=== PATIENT | female | born 1980 | race Caucasian/White ===

== ENCOUNTER 2018-12-25 23:10 | Emergency (ER) | payer OTHER ==
--- NOTE | 2018-12-26 00:37 | ER Document Report ---
ED General - General Chief Complaint: Pain All Over Stated Complaint: BODY ACHES Time Seen by Provider: 12/26/18 00:18 Primary Care Provider: MIRELA LOPEZ PA-C [Primary Care Provider] - Follow up as needed Notes: Patient is a 38-year-old female otherwise healthy presents to the emergency department for a subjective fever and headache this evening. Patient also complaining of pressure in her left ear. States she has had a generalized cough and congestion for the last 2 weeks. States she noticed she had a subjective fever this evening which is why she presents to the emergency room. States she did take 800 mg of Motrin prior to arrival to the ER. States she no longer feels as though she has a fever and she no longer has a headache. Patient's denying any nausea, vomiting, diarrhea, dysuria, rash, abdominal pain, chest pain. States typically her cough "keeps me up at night." Patient has no medical problems, takes no daily medications, has no allergies, last menstrual cycle was last week. Past Medical History - General Information source: Patient - Social History Smoking Status: Unknown if Ever Smoked Family History: Reviewed & Not Pertinent Review of Systems - Review of Systems Constitutional: Fever EENT: See HPI Cardiovascular: No symptoms reported Respiratory: See HPI Gastrointestinal: No symptoms reported Genitourinary: No symptoms reported Female Genitourinary: No symptoms reported Musculoskeletal: No symptoms reported Skin: No symptoms reported Hematologic/Lymphatic: No symptoms reported Neurological/Psychological: See HPI Physical Exam - Vital signs Vitals: Temp Pulse Resp BP Pulse Ox 99.1 F 104 H 16 127/70 H 97 12/25/18 23:21 12/25/18 23:21 12/25/18 23:21 12/25/18 23:21 12/25/18 23:21 - Notes Notes: GENERAL: Alert, interacts well. No acute distress. HEAD: Normocephalic, atraumatic. EYES: Pupils equal, round, and reactive to light. Extraocular movements intact. ENT: Oral mucosa moist, tongue midline. Nares patent, swollen turbinates noted bilaterally, TM's intact, nonerythematous, nonbulging bilaterally. Pharynx minorly erythematous, no palatal petechiae or exudate noted. NECK: Full range of motion. Supple. Trachea midline. No lymphadenopathy appreciated LUNGS: Clear to auscultation bilaterally, no wheezes, rales, or rhonchi. No respiratory distress. HEART: Regular rate and rhythm. No murmur ABDOMEN: Soft, non-tender. Non-distended. Bowel sounds present in all 4 quadrants. EXTREMITIES: Moves all 4 extremities spontaneously. No edema, normal radial and dorsalis pedis pulses bilaterally. No cyanosis. BACK: no cervical, thoracic, lumbar midline tenderness. No saddle anesthesia, normal distal neurovascular exam. NEUROLOGICAL: Alert and oriented x3. Normal speech. cranial nerves II through XII grossly intact PSYCH: Normal affect, normal mood. SKIN: Warm, dry, normal turgor. No rashes or lesions noted. Course - Re-evaluation Re-evalutation: 12/26/18 02:27 Chest X-Ray 12/26/18 00:31 IMPRESSION: 1. No acute pulmonary process identified. Patient's chest x-ray was negative for pneumonia, pneumothorax, rib fracture. Patient's denying any recent prolonged exposures outside. She is denying any tick bites, walks in the [place] or staying outside to garden recently. Patient is not concerned for tick bite. Discussed likely viral diagnosis with patient at bedside. Patient was hemodynamically stable, non-tachycardic, afebrile. Discussed close follow-up with her primary care provider in the next 12 to 24 hours. Patient stable for discharge. - Vital Signs Vital signs: Temp Pulse Resp BP Pulse Ox 99.1 F 104 H 16 127/70 H 97 12/25/18 23:21 12/25/18 23:21 12/25/18 23:21 12/25/18 23:21 12/25/18 23:21 Discharge - Discharge Clinical Impression: Upper respiratory infection Qualifiers: URI type: unspecified viral URI Qualified Code(s): J06.9 - Acute upper respiratory infection, unspecified Condition: Stable Disposition: HOME, SELF-CARE Instructions: Viral Syndrome ([facility]), Upper Respiratory Illness ([facility]) Additional Instructions: As we discussed you have been seen and treated in the emergency department for an upper respiratory infection. These are typically caused by viruses and do not respond to antibiotics. Please get plenty of rest, drink plenty of fluids. Please take [id number] cold medication as well as the medications I am prescribing. Please follow-up with your primary care provider in the next 12 to 24 hours. Return to the emergency room for any concerns. Prescriptions: Benzonatate [Tessalon Perles 100 mg Capsule] 100 mg PO Q8HP PRN #40 capsule PRN Reason: Fluticasone Propionate [Flonase Nasal [place] 50 Mcg/[place] 16 gm] 1 spray NASL Q12 #1 inhaler Forms: Return to Work Referrals: MIRELA LOPEZ PA-C [Primary Care Provider] - Follow up as needed
--- NOTE | 2018-12-26 01:43 | RADIOLOGY REPORT (SQ) ---
EXAM DESCRIPTION: XR CHEST 2 VIEWS COMPLETED DATE/TME: 12/26/2018 00:31 CLINICAL HISTORY: SOB COMPARISON: None. FINDINGS: Frontal and lateral views of the chest. Cardiomediastinal silhouette: Normal size and contour. Lungs: No consolidation, pneumothorax, or pleural effusion. Bones: No acute osseous abnormality. Upper abdomen: No abnormality identified. IMPRESSION: 1. No acute pulmonary process identified.
[2018-12-26 02:46] VITALS: BP 113/66
== END 2018-12-26 02:45 | disposition home or self-care (01) ==
LOC: ER 23:10
DX: J06.9 Acute upper respiratory infection, unspecified (principal); M79.10 Myalgia, unspecified site; R50.9 Fever, unspecified; R51 Headache; H92.02 Otalgia, left ear; R05 Cough
CPT/HCPCS: 71046